=== PATIENT | male | born 1985 | race Caucasian/White ===

== ENCOUNTER 2018-06-24 11:48 | Inpatient (IN) | payer OTHER ==
[2018-06-24 13:00] VITALS: BMI 27.4
--- NOTE | 2018-06-24 16:09 | HP ---
COWS - Scale Resting Pulse: 0= IN 80 or Below Sweatin= Chills/Flushing Restless Observation: 1= Difficult to Sit Still Pupil Size: 1= Pupils >than Normal Bone or Joint Aches: 2= Severe Diffuse Aches Runny Nose/ Eye Tearin= Runny Nose/Eyes GI Upset > 30mins: 2= Nausea/Diarrhea Tremor Observation: 2= Slight Tremor Visible Yawning Observation: 1= 1-2x During Session Anxiety or Irritability: 2=Irritable/Anxious Goose Flesh Skin: 0=Smooth Skin COWS Score: 14 Admission ROS S - HPI Chief Complaint: i need help to stop using heroin,oxycodone,xanax prescribed,stated had oxycodone prescribed on 06/09/18 in [facility] for 5days, on prescribed xanax 2 mgs po tid ,filled on 07/08/18 but also abused xanax history of kidney stones has lithotripsy right 0n 10/06/17 bipolar disorder nicotine dependence last detox 8 years ago longest sobriety 7 years patient consent to reach his provider but unable to reach for further information Allergies/Adverse Reactions: Allergies Allergy/AdvReac Type Severity Reaction Status Date / Time penicillin G AdvReac hallucinati Verified 06/24/18 15:51 on History of Present Illness: this 32 years old male with opiod dependence,and xanax dependence,need detox as mentioned above Exam Limitations: No Limitations - Ebola screening Have you been sick,other than usual withdrawal symptoms: No - Review of Systems Constitutional: Chills, Loss of Appetite, Malaise, Night Sweats, Changes in sleep, Weakness EENT: reports: Tearing, Nose Congestion Respiratory: reports: No Symptoms reported Cardiac: reports: Palpitations GI: reports: Nausea, Poor Appetite, Abdominal cramping : reports: No Symptoms Reported, Other (kidney stones) Musculoskeletal: reports: Back Pain, Joint Pain, Muscle Pain Integumentary: reports: Dryness Neuro: reports: Headache, Tremors Endocrine: reports: No Symptoms Reported Hematology: reports: No Symptoms Reported Psychiatric: reports: No Sypmtoms Reported, Judgement Intact, Mood/Affect Appropiate, Orientated x3 (bipolar disorder), Anxious, Depressed Patient History - Patient Medical History Hx Anemia: No Hx Asthma: No Hx Chronic Obstructive Pulmonary Disease (COPD): No Hx Cancer: No Hx Cardiac Disorders: No Hx Congestive Heart Failure: No Hx Hypertension: No Hx Hypercholesterolemia: No Hx Pacemaker: No HX Cerebrovascular Accident: No Hx Seizures: No Hx Dementia: No Hx Diabetes: No Hx Gastrointestinal Disorders: No Hx Liver Disease: No Hx Genitourinary Disorders: Yes (kidneys stones s/plithotripsy in 10/06/17) Hx Sexually Transmitted Disorders: No Hx Renal Disease (ESRD): No Hx Thyroid Disease: No Hx Human Immunodeficiency Virus (HIV): No (last 04/09 negative) Hx Hepatitis C: No Hx Depression: Yes (anxiety) Hx Suicide Attempt: Yes (cutter 04/09) Hx Bipolar Disorder: Yes Hx Schizophrenia: No Other Medical History: no suicidal,no homicidal - Patient Surgical History Past Surgical History: Yes Other Surgical History: s/p litotripsy right in 10/06/17 - PPD History Previous Implant?: Yes Documented Results: Negative w/o proof PPD to be Administered?: Yes - Smoking Cessation Smoking history: Former smoker Have you smoked in the past 12 months: No Aproximately how many cigarettes per day: 10 If you are a former smoker, when did you quit?: 2010 Hx Chewing Tobacco Use: No Initiated information on smoking cessation: Yes 'Breaking Loose' booklet given: 06/24/18 - Substance & Tx. History Hx Alcohol Use: No Hx Substance Use: Yes Substance Use Type: Heroin, Opiates, Tranquilizers Hx Substance Use Treatment: Yes (2009 ) Family Disease History - Family Disease History Family Disease History: Other: Mother (dsa,alcohol) Admission Physical Exam [facility] - Vital Signs Vital Signs: Vital Signs - 24 hr 06/24/18 12:54 Temperature 97.7 F Pulse Rate 73 Respiratory 18 Rate Blood Pressure 136/81 - Physical General Appearance: Yes: Moderate Distress, Tremorous, Irritable, Sweating, Anxious HEENTM: Yes: Normal ENT Inspection, PHIL, Pharynx Normal Respiratory: Yes: Lungs Clear, Normal Breath Sounds, No Respiratory Distress Neck: Yes: Supple, Trachea in good position Breast: Yes: Within Normal Limits Cardiology: Yes: Within Normal Limits, Regular Rhythm, Regular Rate, S1, S2 Abdominal: Yes: Within Normal Limits, Normal Bowel Sounds, Non Tender, Flat, Soft Genitourinary: Yes: Within Normal Limits Back: Yes: Muscle Spasm Musculoskeletal: Yes: Back pain, Muscle Pain Extremities: Yes: Normal Range of Motion, Tremors Neurological: Yes: Within Normal Limits, body and frame man II-XII NML intact, Fully Oriented, Alert, Motor Strength 5/5 Integumentary: Yes: Dry Lymphatic: Yes: Within Normal Limits - Diagnostic (1) Opioid dependence with withdrawal Current Visit: Yes Status: Acute (2) Sedative dependence Current Visit: Yes Status: Acute (3) Kidney stones Current Visit: Yes Status: Acute (4) Bipolar disorder Current Visit: Yes Status: Acute (5) History of lithotripsy Current Visit: Yes Status: Acute Cleared for Admission [facility] - Detox or Rehab [facility] Level of Care: Medically Managed Detox Regimen/Protocol: Methadone [facility] Breath Alcohol Content Breath Alcohol Content: 0 Urine Drug Screen - Results Drug Screen Negative: No Urine Drug Screen Results: OPI-Opiates, BZO-Benzodiazepines, OXY-Oxycodone, FEN- Fentanyl
[2018-06-24] MEDS ORDERED: MENTHOL/PHENOL 1 EACH UD MM PRN (16:23)
[2018-06-24] MEDS ORDERED: MAGNESIUM HYDROX 2400MG/30ML ORAL SUSPENSION 30 ML CUP PO PRN (16:23)
[2018-06-24] MEDS ORDERED: MAGNESIUM CITRATE 300 ML BOTTLE PO PRN (16:23)
[2018-06-24] MEDS ORDERED: LOPERAMIDE HCL 2 MG CAPSULE PO PRN (16:23)
[2018-06-24] MEDS ORDERED: guaiFENesin/D-METHORPHAN HB 10 ML UNIT-DOSE CUPS PO PRN (16:23)
[2018-06-24] MEDS ORDERED: P-EPHED 60MG/TRIPROLIDI 2.5MG TABLET PO PRN (16:23)
[2018-06-24] MEDS ORDERED: METHADONE HCL 10 MG TABLET (FOR DETOX USE ONLY) PO ONE ×2 (16:45→23:00)
[2018-06-24] MEDS: diazePAM 5 MG TABLET PO PRN ×2 (17:09→22:19)
[2018-06-24] MEDS: NICOTINE POLACRILEX 2 MG GUM BC PRN (17:30)
[2018-06-24] MEDS: THIAMINE HCL 100 MG TABLET (FP) PO SCH (22:19)
[2018-06-24 23:32] LABS: URINE APPEARANCE CLEAR; URINE BILIRUBIN NEGATIVE (<2.0 mg/dL); URINE COLOR STRAW; URINE GLUCOSE (UA) NEGATIVE (NEGATIVE); URINE KETONE NEGATIVE (NEGATIVE); URINE LEUK ESTERASE NEGATIVE (NEGATIVE); URINE NITRITE NEGATIVE (NEGATIVE); URINE PROTEIN NEGATIVE (NEGATIVE); URINE UROBILINOGEN NEGATIVE mg/dL (0.2-1.0)
[2018-06-25] MEDS: MAG HYDROX/AL HYDROX/SIMETH 30 ML UNIT-DOSE CUP PO PRN ×2 (06:00→20:07)
[2018-06-25] MEDS: diazePAM 5 MG TABLET PO PRN ×3 (06:42→14:56)
[2018-06-25] MEDS ORDERED: ONDANSETRON *ODT* 4 MG TABLET SL PRN (09:55)
--- NOTE | 2018-06-25 09:57 | PN ---
[facility] COWS - Scale Resting Pulse: 0= [place] 80 or Below Sweatin=Flushed/Facial Moisture Restless Observation: 1= Difficult to Sit Still Pupil Size: 2= Moderately Dilated Bone or Joint Aches: 1= Mild Discomfort Runny Nose/ Eye Tearin= Runny Nose/Eyes GI Upset > 30mins: 2= Nausea/Diarrhea Tremor Observation of Outstretched Hands: 1= Tremor [place], Not Seen Yawning Observation: 1= 1-2x During Session Anxiety or Irritability: 2=Irritable/Anxious Goose Flesh Skin: 0=Smooth Skin COWS Score: 14 [facility] Progress Note (SOAP) Subjective: nausea, back pain, body aches, chills Objective: 06/25/18 09:56 Vital Signs Temperature 97 F L 06/25/18 09:10 Pulse Rate 74 06/25/18 09:10 Respiratory Rate 18 06/25/18 09:10 Blood Pressure 118/65 06/25/18 09:10 O2 Sat by Pulse Oximetry (%) Laboratory Last Values WBC 6.6 K/mm3 (4.0-10.0) 06/25/18 08:00 RBC 4.75 M/mm3 (4.00-5.60) 06/25/18 08:00 Hgb 14.5 GM/dL (11.7-16.9) 06/25/18 08:00 Hct 40.7 % (35.4-49) 06/25/18 08:00 MCV 85.6 fl (80-96) 06/25/18 08:00 MCH 30.5 pg (25.7-33.7) 06/25/18 08:00 MCHC 35.6 g/dl (32.0-35.9) 06/25/18 08:00 RDW 12.9 % (11.9-15.9) 06/25/18 08:00 Plt Count 270 K/MM3 (134-434) 06/25/18 08:00 MPV 8.7 fl (7.5-11.1) 06/25/18 08:00 Sodium 140 mmol/L (136-145) 06/25/18 08:00 Potassium 3.6 mmol/L (3.5-5.1) 06/25/18 08:00 Chloride 101 mmol/L (98-107) 06/25/18 08:00 Carbon Dioxide 26 mmol/L (21-32) 06/25/18 08:00 Anion Gap 13 MMOL/L (8-16) 06/25/18 08:00 BUN 10 mg/dL (7-18) 06/25/18 08:00 Creatinine 1.0 mg/dL (0.55-1.3) 06/25/18 08:00 Creat Clearance w eGFR > 60 (>60) 06/25/18 08:00 Random Glucose 141 mg/dL (74-106) H 06/25/18 08:00 Calcium 8.7 mg/dL (8.5-10.1) 06/25/18 08:00 Total Bilirubin 0.6 mg/dL (0.2-1) 06/25/18 08:00 AST 20 U/L (15-37) 06/25/18 08:00 ALT 27 U/L (13-61) 06/25/18 08:00 Alkaline Phosphatase 55 U/L (45-117) 06/25/18 08:00 Total Protein 7.0 g/dl (6.4-8.2) 06/25/18 08:00 Albumin 3.8 g/dl (3.4-5.0) 06/25/18 08:00 Urine Color Straw 06/24/18 18:05 Urine Appearance Clear 06/24/18 18:05 Urine pH 9.0 (5.0-8.0) H 06/24/18 18:05 Ur Specific [place] 1.009 (1.010-1.035) L 06/24/18 18:05 Urine Protein Negative (NEGATIVE) 06/24/18 18:05 Urine Glucose (UA) Negative (NEGATIVE) 06/24/18 18:05 Urine Ketones Negative (NEGATIVE) 06/24/18 18:05 Urine Blood Negative (NEGATIVE) 06/24/18 18:05 Urine Nitrite Negative (NEGATIVE) 06/24/18 18:05 Urine Bilirubin Negative (<2.0 mg/dL) 06/24/18 18:05 Urine Urobilinogen Negative mg/dL (0.2-1.0) 06/24/18 18:05 Ur Leukocyte Esterase Negative (NEGATIVE) 06/24/18 18:05 RPR Titer Nonreactive (NONREACTIVE) 06/25/18 08:00 HIV 1&2 Antibody Screen Negative 06/25/18 08:00 HIV P24 Antigen Negative 06/25/18 08:00 Aox3 no distress +dilated pupils no adventitious breath sounds full ROM Assessment: 06/25/18 15:21 withdrawal sx Plan: increase Po fluids
[2018-06-25] MEDS ORDERED: METHADONE HCL 10 MG TABLET (FOR DETOX USE ONLY) PO ONE (10:00)
[2018-06-25] MEDS: ACETAMINOPHEN 325 MG TABLET (FP) PO PRN ×2 (10:18→22:14)
[2018-06-25] MEDS: PRENATAL VITAMINS W/ FOLIC ACID TABLET (FP) PO SCH (10:18)
[2018-06-25 10:19] LABS: HEMATOCRIT 40.7 % (35.4-49); HEMOGLOBIN 14.5 GM/dL (11.7-16.9); MCH 30.5 pg (25.7-33.7); MCHC 35.6 g/dl (32.0-35.9); MEAN CELL VOLUME 85.6 fl (80-96); MEAN PLT VOLUME 8.7 fl (7.5-11.1); PLATELET COUNT 270 K/MM3 (134-434); RBC 4.75 M/mm3 (4.00-5.60); RDW 12.9 % (11.9-15.9); WHITE BLOOD COUNT 6.6 K/mm3 (4.0-10.0)
[2018-06-25 10:29] LABS: ALBUMIN 3.8 g/dl (3.4-5.0); ALK PHOS 55 U/L (45-117); ANION GAP 13 MMOL/L (8-16); BILIRUBIN,TOTAL 0.6 mg/dL (0.2-1); BLOOD UREA NITROGEN 10 mg/dL (7-18); CALCIUM 8.7 mg/dL (8.5-10.1); CHLORIDE 101 mmol/L (98-107); CO2 26 mmol/L (21-32); GLUCOSE,RANDOM 141 mg/dL (74-106); POTASSIUM 3.6 mmol/L (3.5-5.1); SGOT/AST 20 U/L (15-37); SGPT/ALT 27 U/L (13-61); SODIUM 140 mmol/L (136-145)
--- NOTE | 2018-06-25 12:23 | CONSULT ---
[facility] Psychiatric Consult - Data Date of interview: 06/25/18 Admission source: [facility] Identifying data: First admission to [facility] for this 32 y/o male seeking detoxification treatment, on , for opioid and benzodiazepine dependence (xanax). Patient is single without dependents, domiciled and reportedly self-employed. Substance Abuse History: Patient endorses chronic use of oxycodone since age 14 (now uses up to 200 mg/day after a seven year abstinence period) ; abuses xanax up to 10 mg/day + just started heroin, 4 days ago, at the rate of 16-20 bags daily (snorting). Mr King reports that he goes to AA/NA meetings. For additional details, refer to current [facility] report : Smoking history: Former smoker. Have you smoked in the past 12 months: No. Aproximately how many cigarettes per day: 10. If you are a former smoker, when did you quit?: 2010. Hx Chewing Tobacco Use: No. Initiated information on smoking cessation: Yes. ' Breaking Loose' booklet given: 06/24/18. - Substance & Tx. History. Hx Alcohol Use: No. Hx Substance Use: Yes. Substance Use Type: Heroin, Opiates, Tranquilizers. Hx Substance Use Treatment: Yes (2009 ) Medical History: Nephrolithiasis. History of lithotripsy. Psychiatric History: Patient denies history of psychiatric hospitalizations. Admits to prior contact with a private psychiatrist, Dr Apple, who diagnosed him with MDD and Anxiety Disorder. Prescribed xanax and lexapro 20 mg/day. Mr King reports one suicide attempt (superficial wrist-cutting) two months ago. Physical/Sexual Abuse/Trauma History: Patient denies. Additional Comment: Urine Drug Screen Results: OPI-Opiates, BZO-Benzodiazepines , OXY-Oxycodone, FEN-Fentanyl. Noted. Mental Status Exam - Mental Status Exam Alert and Oriented to: Time, Place, Person Cognitive Function: Good Patient Appearance: Well Groomed Mood: Anxious, Apprehensive Affect: Mood Congruent Patient Behavior: Appropriate, Cooperative Speech Pattern: Clear Voice Loudness: Normal Thought Process: Intact, Goal Oriented Thought Disorder: Not Present Hallucinations: Denies Suicidal Ideation: Denies Homicidal Ideation: Denies Insight/Judgement: Poor Sleep: Well Appetite: Good Muscle strength/Tone: Normal Gait/Station: Normal Psychiatric Findings - Problem List ([place] 1, 2,3) (1) Opioid dependence with withdrawal Current Visit: Yes Status: Acute (2) Sedative dependence Current Visit: Yes Status: Acute (3) Substance induced mood disorder Current Visit: Yes Status: Acute (4) Depressive disorder Current Visit: Yes Status: Chronic Comment: According to self report. On medication. - Initial Treatment Plan Initial Treatment Plan: Psychoeducation. Sleep hygiene. Detoxification. Psychotherapy (group, individual, supportive). NA meetings. Patient is made aware of FDA-approved interventions for relapse prevention after discharge. Declines to consider enrollment in such programs. Lexapro is resumed at the dose of 10 mg/day (patient's specific request). Side effects/benefits discussed with the patient. Consent (verbal) given. Observation.
--- NOTE | 2018-06-25 12:26 | EKG ---
Test Reason : Blood Pressure : / mmHG Vent. Rate : 093 BPM Atrial Rate : 093 BPM P-R Int : 146 ms QRS Dur : 076 ms QT Int : 352 ms P-R-T Axes : 067 065 062 degrees QTc Int : 437 ms NORMAL SINUS RHYTHM NONSPECIFIC ST ABNORMALITY NO PREVIOUS ECGS AVAILABLE Confirmed by JEROMY BAKER MD ([id number]) on 06/25/2018 12:26:01 PM Referred By: Madeline Don Confirmed By:JEROMY BAKER MD
[2018-06-25] MEDS: ESCITALOPRAM OXALATE 10 MG TABLET (FP) PO SCH (13:06)
[2018-06-25] MEDS: NICOTINE POLACRILEX 2 MG GUM BC PRN ×2 (16:46→21:06)
[2018-06-25] MEDS: hydrOXYzine PAMOATE 50 MG CAPSULE (FP) PO PRN (20:36)
[2018-06-25] MEDS: IBUPROFEN 400 MG TABLET (FP) PO PRN (20:36)
[2018-06-25] MEDS: CYCLOBENZAPRINE HCL 10 MG TABLET (FP) PO PRN (20:38)
[2018-06-25] MEDS: THIAMINE HCL 100 MG TABLET (FP) PO SCH (22:13)
[2018-06-25] MEDS: MELATONIN 5 MG TABLETS PO PRN (22:14)
[2018-06-26] MEDS: diazePAM 5 MG TABLET PO PRN ×4 (03:16→21:13)
[2018-06-26] MEDS: CYCLOBENZAPRINE HCL 10 MG TABLET (FP) PO PRN ×2 (03:16→18:14)
[2018-06-26] MEDS: ACETAMINOPHEN 325 MG TABLET (FP) PO PRN (03:17)
[2018-06-26] MEDS: IBUPROFEN 400 MG TABLET (FP) PO PRN ×2 (09:18→18:14)
[2018-06-26] MEDS ORDERED: METHADONE HCL 5 MG TABLET (FOR DETOX USE ONLY) PO ONE (10:00)
[2018-06-26] MEDS: PRENATAL VITAMINS W/ FOLIC ACID TABLET (FP) PO SCH (10:29)
[2018-06-26] MEDS: ESCITALOPRAM OXALATE 10 MG TABLET (FP) PO SCH (10:29)
[2018-06-26] MEDS: NICOTINE POLACRILEX 2 MG GUM BC PRN ×2 (15:29→18:16)
[2018-06-26] MEDS ORDERED: cloNIDine HCL 0.1 MG TABLET PO PRN (17:49)
--- NOTE | 2018-06-26 17:49 | PN ---
S COWS - Scale Resting Pulse: 0= [place] 80 or Below Sweatin= Chills/Flushing Restless Observation: 3= Extraneous Movement Pupil Size: 0= Normal to Room Light Bone or Joint Aches: 1= Mild Discomfort Runny Nose/ Eye Tearin= None GI Upset > 30mins: 1= Stomach Cramp Tremor Observation of Outstretched Hands: 2= Slight Tremor Visible Yawning Observation: 1= 1-2x During Session Anxiety or Irritability: 2=Irritable/Anxious Goose Flesh Skin: 0=Smooth Skin COWS Score: 11 [facility] Progress Note (SOAP) Subjective: Stomach cramps, fatigue, no appetite Objective: 06/26/18 17:46 Last Vital Signs Temp Pulse Resp BP Pulse Ox 98.0 F 78 18 149/85 06/26/18 13:55 06/26/18 13:55 06/26/18 13:55 06/26/18 13:55 B/P elevated Laboratory Tests 06/24/18 06/25/18 06/25/18 18:05 08:00 08:00 WBC 6.6 RBC 4.75 Hgb 14.5 Hct 40.7 MCV 85.6 MCH 30.5 MCHC 35.6 RDW 12.9 Plt Count 270 MPV 8.7 Sodium Potassium Chloride Carbon Dioxide Anion Gap BUN Creatinine Creat Clearance w eGFR Random Glucose Calcium Total Bilirubin AST ALT Alkaline Phosphatase Total Protein Albumin Urine Color Straw Urine Appearance Clear Urine pH 9.0 H Ur Specific [place] 1.009 L Urine Protein Negative Urine Glucose (UA) Negative Urine Ketones Negative Urine Blood Negative Urine Nitrite Negative Urine Bilirubin Negative Urine Urobilinogen Negative Ur Leukocyte Esterase Negative RPR Titer HIV 1&2 Antibody Screen Negative HIV P24 Antigen Negative 06/25/18 06/25/18 08:00 08:00 WBC RBC Hgb Hct MCV MCH MCHC RDW Plt Count MPV Sodium 140 Potassium 3.6 Chloride 101 Carbon Dioxide 26 Anion Gap 13 BUN 10 Creatinine 1.0 Creat Clearance w eGFR > 60 Random Glucose 141 H Calcium 8.7 Total Bilirubin 0.6 AST 20 ALT 27 Alkaline Phosphatase 55 Total Protein 7.0 Albumin 3.8 Urine Color Urine Appearance Urine pH Ur Specific [place] Urine Protein Urine Glucose (UA) Urine Ketones Urine Blood Urine Nitrite Urine Bilirubin Urine Urobilinogen Ur Leukocyte Esterase RPR Titer Nonreactive HIV 1&2 Antibody Screen HIV P24 Antigen Labs reviewed: glucose 141 Assessment: 06/26/18 17:47 Withdrawal symptoms Noted with elevated blood pressure and hyperglycemia Plan: Continue detox Encouraged PO water intake Elevated blood pressure: clonidine prn Hyperglycemia: repeat fasting glucose
[2018-06-26] MEDS: hydrOXYzine PAMOATE 50 MG CAPSULE (FP) PO PRN (18:14)
[2018-06-26] MEDS: THIAMINE HCL 100 MG TABLET (FP) PO SCH (21:13)
[2018-06-27] MEDS: diazePAM 5 MG TABLET PO PRN ×2 (03:52→07:59)
[2018-06-27] MEDS: CYCLOBENZAPRINE HCL 10 MG TABLET (FP) PO PRN ×2 (06:20→22:15)
[2018-06-27] MEDS: hydrOXYzine PAMOATE 50 MG CAPSULE (FP) PO PRN ×3 (06:20→22:15)
[2018-06-27] MEDS: IBUPROFEN 400 MG TABLET (FP) PO PRN ×2 (07:33→17:49)
[2018-06-27] MEDS: cloNIDine HCL 0.1 MG TABLET PO PRN ×2 (07:34→22:15)
[2018-06-27] MEDS ORDERED: METHADONE HCL 5 MG TABLET (FOR DETOX USE ONLY) PO ONE (10:00)
[2018-06-27] MEDS: PRENATAL VITAMINS W/ FOLIC ACID TABLET (FP) PO SCH (10:28)
[2018-06-27] MEDS: ESCITALOPRAM OXALATE 10 MG TABLET (FP) PO SCH (10:29)
--- NOTE | 2018-06-27 12:48 | PN ---
[facility] Progress Note (SOAP) Subjective: Stomach cramps, cramping in legs, sweating, nausea, body ache, restless legs, interrupted sleep Objective: 06/27/18 12:47 Last Vital Signs Temp Pulse Resp BP Pulse Ox 97.1 F L 74 18 102/56 L 06/27/18 09:26 06/27/18 09:26 06/27/18 09:26 06/27/18 09:26 Laboratory Tests 06/24/18 06/25/18 06/25/18 18:05 08:00 08:00 WBC 6.6 RBC 4.75 Hgb 14.5 Hct 40.7 MCV 85.6 MCH 30.5 MCHC 35.6 RDW 12.9 Plt Count 270 MPV 8.7 Sodium Potassium Chloride Carbon Dioxide Anion Gap BUN Creatinine Creat Clearance w eGFR Random Glucose Fasting Glucose Calcium Total Bilirubin AST ALT Alkaline Phosphatase Total Protein Albumin Urine Color Straw Urine Appearance Clear Urine pH 9.0 H Ur Specific [place] 1.009 L Urine Protein Negative Urine Glucose (UA) Negative Urine Ketones Negative Urine Blood Negative Urine Nitrite Negative Urine Bilirubin Negative Urine Urobilinogen Negative Ur Leukocyte Esterase Negative RPR Titer HIV 1&2 Antibody Screen Negative HIV P24 Antigen Negative 06/25/18 06/25/18 06/27/18 08:00 08:00 07:40 WBC RBC Hgb Hct MCV MCH MCHC RDW Plt Count MPV Sodium 140 Potassium 3.6 Chloride 101 Carbon Dioxide 26 Anion Gap 13 BUN 10 Creatinine 1.0 Creat Clearance w eGFR > 60 Random Glucose 141 H Fasting Glucose 94 Calcium 8.7 Total Bilirubin 0.6 AST 20 ALT 27 Alkaline Phosphatase 55 Total Protein 7.0 Albumin 3.8 Urine Color Urine Appearance Urine pH Ur Specific [place] Urine Protein Urine Glucose (UA) Urine Ketones Urine Blood Urine Nitrite Urine Bilirubin Urine Urobilinogen Ur Leukocyte Esterase RPR Titer Nonreactive HIV 1&2 Antibody Screen HIV P24 Antigen Labs reviewed Assessment: 06/27/18 12:47 Withdrawal symptoms Plan: Continue detox Encouraged PO water hydration
[2018-06-27] MEDS: NICOTINE POLACRILEX 2 MG GUM BC PRN ×3 (12:51→21:02)
[2018-06-27] MEDS: THIAMINE HCL 100 MG TABLET (FP) PO SCH (22:15)
[2018-06-27] MEDS: MELATONIN 5 MG TABLETS PO PRN (23:13)
[2018-06-28 09:30] VITALS: BP 110/65; PULSE 62; TEMP 97
[2018-06-28] MEDS: PRENATAL VITAMINS W/ FOLIC ACID TABLET (FP) PO SCH (09:50)
[2018-06-28] MEDS: ESCITALOPRAM OXALATE 10 MG TABLET (FP) PO SCH (09:51)
[2018-06-28] MEDS: MAG HYDROX/AL HYDROX/SIMETH 30 ML UNIT-DOSE CUP PO PRN (09:51)
[2018-06-28] MEDS: NICOTINE POLACRILEX 2 MG GUM BC PRN (09:51)
[2018-06-28] MEDS ORDERED: METHADONE HCL 10 MG TABLET (FOR DETOX USE ONLY) PO ONE (10:00)
--- NOTE | 2018-06-28 12:45 | DS ---
[facility] Detox Discharge Summary Admission Date: 06/24/18 Discharge Date: 06/28/18 - History Present History: Opioid Dependence, Sedative Dependence Additional Comments: Patient decided to leave AMA despite encouragement from staff to complete detox. As per patient, he has things to do and has to leave. Patient is A/A/Ox3 , in nad, ambulatory. Patient instructed to call 911 if any withdrawal symptoms or feeling sick and to see his PCP within 3 days. Pertinent Past History: Opioid dependence Sedative dependence Kidney stones Bipolar disorder Depression - Physical Exam Results Vital Signs: Vital Signs Temperature 97.0 F L 06/28/18 09:30 Pulse Rate 62 06/28/18 09:30 Respiratory Rate 18 06/28/18 09:30 Blood Pressure 110/65 06/28/18 09:30 O2 Sat by Pulse Oximetry (%) Pertinent Admission Physical Exam Findings: Withdrawal symptoms Laboratory Tests 06/24/18 06/25/18 06/25/18 18:05 08:00 08:00 WBC 6.6 RBC 4.75 Hgb 14.5 Hct 40.7 MCV 85.6 MCH 30.5 MCHC 35.6 RDW 12.9 Plt Count 270 MPV 8.7 Sodium Potassium Chloride Carbon Dioxide Anion Gap BUN Creatinine Creat Clearance w eGFR Random Glucose Fasting Glucose Calcium Total Bilirubin AST ALT Alkaline Phosphatase Total Protein Albumin Urine Color Straw Urine Appearance Clear Urine pH 9.0 H Ur Specific [place] 1.009 L Urine Protein Negative Urine Glucose (UA) Negative Urine Ketones Negative Urine Blood Negative Urine Nitrite Negative Urine Bilirubin Negative Urine Urobilinogen Negative Ur Leukocyte Esterase Negative RPR Titer HIV 1&2 Antibody Screen Negative HIV P24 Antigen Negative 06/25/18 06/25/18 06/27/18 08:00 08:00 07:40 WBC RBC Hgb Hct MCV MCH MCHC RDW Plt Count MPV Sodium 140 Potassium 3.6 Chloride 101 Carbon Dioxide 26 Anion Gap 13 BUN 10 Creatinine 1.0 Creat Clearance w eGFR > 60 Random Glucose 141 H Fasting Glucose 94 Calcium 8.7 Total Bilirubin 0.6 AST 20 ALT 27 Alkaline Phosphatase 55 Total Protein 7.0 Albumin 3.8 Urine Color Urine Appearance Urine pH Ur Specific [place] Urine Protein Urine Glucose (UA) Urine Ketones Urine Blood Urine Nitrite Urine Bilirubin Urine Urobilinogen Ur Leukocyte Esterase RPR Titer Nonreactive HIV 1&2 Antibody Screen HIV P24 Antigen Labs reviewed - Medication Discharge Medications: Ambulatory Orders Escitalopram Oxalate [Lexapro -] 20 mg PO DAILY 06/24/18 Escitalopram Oxalate [Lexapro -] 10 mg PO DAILY #30 tablet 06/27/18 - Diagnosis (1) Elevated blood pressure reading without diagnosis of hypertension Status: Resolved (2) Bipolar disorder Status: Chronic (3) History of lithotripsy Status: Chronic (4) Kidney stones Status: Chronic (5) Opioid dependence with withdrawal Status: Acute (6) Sedative dependence Status: Acute (7) Substance induced mood disorder Status: Acute (8) Depressive disorder Status: Chronic - AMA Did Patient Leave Against Medical Advice: Yes (Patient instructed to call 911 if feeling sick or any withdrawal symptoms)
[2018-06-29] MEDS ORDERED: METHADONE HCL 5 MG TABLET (FOR DETOX USE ONLY) PO ONE (06:00)
== END 2018-06-28 11:16 | disposition left against medical advice (07) | DRG 770 ==
LOC: YASAS 11:48 → Y3N 16:28
PROC: HZ2ZZZZ Detoxification Services for Substance Abuse Treatment (ICD-10-PCS; principal; 2018-06-24)
DX: F11.23 Opioid dependence with withdrawal (principal); F13.20 Sedative, hypnotic or anxiolytic dependence, uncomplicated; F19.24 Other psychoactive substance dependence with psychoactive substance-induced mood disorder; F31.9 Bipolar disorder, unspecified; F32.9 Major depressive disorder, single episode, unspecified; R03.0 Elevated blood-pressure reading, without diagnosis of hypertension; R73.9 Hyperglycemia, unspecified; Z87.442 Personal history of urinary calculi; Z98.890 Other specified postprocedural states; Z59.0 Homelessness
CPT/HCPCS: 36415; 80053; 81003; 82947; 85027; 86593; 87389; 93005; 93010; J0735